=== PATIENT | female | born 1990 | race Hispanic/Latino ===

== ENCOUNTER 2018-04-11 20:28 | Emergency (ER) | payer BC, OTHER ==
[~2018-04-11] VITALS: Ht 172.7 cm; Wt 83.0 kg
[~2018-04-11 20:28] MED LIST: CIPRO500 MG PO; LEVOTHYROXINE50 MCG PO; MOTRIN200 MG PO; TYLENOL WITH C1 EACH PO; VITAMIN D10000 UNIT PO
[2018-04-11] MEDS ORDERED: KETOROLAC TROMETHAMINE 30 MG/ML VIAL IV STA (20:50)
[2018-04-11] MEDS ORDERED: FENTANYL CITRATE/PF 100MCG/2 ML INJ IV ONE (21:15)
[2018-04-11 21:51] VITALS: BP 145/88
== END 2018-04-11 21:57 | disposition home or self-care (01) ==
LOC: FSED 20:28
DX: R10.31 Right lower quadrant pain (principal); R11.0 Nausea; I88.0 Nonspecific mesenteric lymphadenitis; E03.9 Hypothyroidism, unspecified
CPT/HCPCS: 74177; 80048; 81003; 81025; 85025; 96374; 99283; J1885